=== PATIENT | female | born 1970 | race Caucasian/White ===

== ENCOUNTER 2017-08-18 13:11 | Emergency (ER) | END 2017-08-18 18:14 | disposition home or self-care (01) ==

== ENCOUNTER 2017-12-20 06:11 | Emergency (ER) | END 2017-12-20 09:17 | disposition home or self-care (01) ==

== ENCOUNTER 2019-02-09 09:43 | Emergency (ER) | payer OTHER ==
[~2019-02-09] VITALS: Ht 157.5 cm; Wt 92.3 kg
[~2019-02-09 09:43] MED LIST: ALBU18HF INHALATION; ALBU8.5H8 INH; GUAI1TBM12 PO; IBUP-1542 PO; OMEP40CA6 PO; PRED20TA PO
[2019-02-09 09:45] VITALS: Ht 157.5 cm; Wt 92.3 kg
[2019-02-09 11:21] VITALS: BP 151/90; PULSE 79; RESP 18
== END 2019-02-09 11:36 | disposition home or self-care (01) ==
LOC: E/R 09:43
DX: R00.2 Palpitations (principal); F17.210 Nicotine dependence, cigarettes, uncomplicated
CPT/HCPCS: 36415; 71045; 80053; 83690; 84484; 85025; 85378; 93005; Z7502